=== PATIENT | male | born 1985 | race Caucasian/White ===

== ENCOUNTER 2017-05-08 16:18 | Inpatient (IN) | payer BC ==
[~2017-05-08] VITALS: Ht 188 cm; Wt 98.5 kg
[2017-05-08 19:00] VITALS: BP 131/74
[2017-05-08] MEDS ORDERED: HYDROmorphone 2 MG/ML VIAL IV PRN (19:30)
[2017-05-08] MEDS ORDERED: IV NORMAL SALINE 1000ML BAG 1,000 ML IV SCH (20:00)
[2017-05-08] MEDS ORDERED: ONDANSETRON PF 4 MG/2 ML VIAL. IV PRN (20:00)
[2017-05-08] MEDS: HYDROmorphone 2 MG/ML VIAL IV PRN ×2 (20:15→23:23)
[2017-05-08 20:20] VITALS: BP 131/74
[2017-05-08] MEDS: IV NORMAL SALINE 1000ML BAG 1,000 ML IV SCH (22:00)
[2017-05-08 23:00] VITALS: BP 146/73
[2017-05-09 03:00] VITALS: BP 130/74
[2017-05-09] MEDS: HYDROmorphone 2 MG/ML VIAL IV PRN ×4 (03:22→16:32)
[2017-05-09] MEDS: IV NORMAL SALINE 1000ML BAG 1,000 ML IV SCH ×3 (04:45→22:00)
[2017-05-09 05:13] LABS: BASO % 0 % (0-3); EOS % 1 % (0-3); HEMATOCRIT 52.1 % (39.0-53.0); HEMOGLOBIN 17.6 g/dL (13.0-17.5); LYMPH # 2.9 x10^3/uL (1.0-4.8); LYMPH % 29 % (24-48); MEAN CORPUSCULAR HEMOGLOBIN 32 pg (25-35); MEAN CORPUSCULAR HGB CONC 34 g/dL (31-37); MEAN CORPUSCULAR VOLUME 94 fL (79-100); MONO % 15 % (0-9); NEUT % 54 % (31-73); PLATELET COUNT 214 x10^3/uL (140-400); RED BLOOD COUNT 5.55 x10^6/uL (4.30-5.70); RED CELL DISTRIBUTION WIDTH 12.7 % (11.5-14.5); WHITE BLOOD COUNT 10.1 x10^3/uL (4.0-11.0)
[2017-05-09 05:47] LABS: ALBUMIN 3.5 g/dL (3.4-5.0); ALBUMIN/GLOBULIN RATIO 0.9 (1.0-1.7); C-REACTIVE PROTEIN 17.1 mg/L (0-3.3); CALCIUM 8.8 mg/dL (8.5-10.1); CREATININE 0.9 mg/dL (0.7-1.3); GFR 99.1; TOTAL BILIRUBIN 0.5 mg/dL (0.2-1.0); TOTAL PROTEIN 7.5 g/dL (6.4-8.2)
[2017-05-09 07:00] VITALS: BP 142/74
[2017-05-09] MEDS ORDERED: BARIUM SULFATE 60% 355 ML SUSP PO ONE ×2 (07:45→08:30)
--- NOTE | 2017-05-09 08:20 | PDOC2 ---
GI CONSULT Reason For Consult: Abdominal pain HPI: HPI: 31 y/o male with 2-week h/o vague upper abdominal discomfort; feels crampy. No change with eating. No nausea or vomiting. Prior to onset, no GI symptoms. Sonogram, CT A/P, HIDA with GBEF normal though abdominal cramps with Kinevac. Denies heartburn or dysphagia. Does have some pc bloating and early satiety. Has had generalized malaise with illness, but no clear viral prodrome. No PUD, GB, liver or pancreatic history. No tobacco and only occasional alcohol use. No real ASA or NSAID use. No D, C, overt bleeding or melena. Weight stable. Appetite off last week or so. No prior endoscopy. No pertinent GIFH. PMH: PMH: Negative for chronic illnesses. s/p ORIF right index finger fx. FH: Family History: No pertinent hx Social History: Smoke: No ALCOHOL: occassional Drugs: None ROS: GEN: Denies fevers, chills, sweats HEENT: Denies blurred vision, sore throat CV: Denies chest pain RESP: Denies shortness of air, cough GI: Per HPI : Denies hematuria, dysuria ENDO: Denies weight changes NEURO: Denies confusion, dizziness MSK: Denies weakness, joint pain/swelling SKIN: Denies jaundice, pruritus Vitals: Vitals: Vital Signs Date Time Temp Pulse Resp B/P (MAP) Pulse Ox O2 Delivery O2 Flow Rate FiO2 05/09/17 06:34 18 Room Air 05/09/17 03:00 97.7 66 130/74 (92) 96 97.7 Labs: Labs: Laboratory Tests Test 05/09/17 05:00 White Blood Count 10.1 x10^3/uL (4.0-11.0) Red Blood Count 5.55 x10^6/uL (4.30-5.70) Hemoglobin 17.6 g/dL (13.0-17.5) Hematocrit 52.1 % (39.0-53.0) Mean Corpuscular Volume 94 fL (79-100) Mean Corpuscular Hemoglobin 32 pg (25-35) Mean Corpuscular Hemoglobin Concent 34 g/dL (31-37) Red Cell Distribution Width 12.7 % (11.5-14.5) Platelet Count 214 x10^3/uL (140-400) Neutrophils (%) (Auto) 54 % (31-73) Lymphocytes (%) (Auto) 29 % (24-48) Monocytes (%) (Auto) 15 % (0-9) Eosinophils (%) (Auto) 1 % (0-3) Basophils (%) (Auto) 0 % (0-3) Neutrophils # (Auto) 5.5 x10^3uL (1.8-7.7) Lymphocytes # (Auto) 2.9 x10^3/uL (1.0-4.8) Monocytes # (Auto) 1.6 x10^3/uL (0.0-1.1) Eosinophils # (Auto) 0.1 x10^3/uL (0.0-0.7) Basophils # (Auto) 0.0 x10^3/uL (0.0-0.2) Erythrocyte Sedimentation Rate 4 (0-15) Sodium Level 139 mmol/L (136-145) Potassium Level 4.0 mmol/L (3.5-5.1) Chloride Level 103 mmol/L (98-107) Carbon Dioxide Level 26 mmol/L (21-32) Anion Gap 10 (6-14) Blood Urea Nitrogen 13 mg/dL (8-26) Creatinine 0.9 mg/dL (0.7-1.3) Estimated GFR (Cockcroft-Gault) 99.1 BUN/Creatinine Ratio 14 (6-20) Glucose Level 69 mg/dL (70-99) Calcium Level 8.8 mg/dL (8.5-10.1) Total Bilirubin 0.5 mg/dL (0.2-1.0) Aspartate Amino Transf (AST/SGOT) 25 U/L (15-37) Alanine Aminotransferase (ALT/SGPT) 62 U/L (16-63) Alkaline Phosphatase 55 U/L (46-116) C-Reactive Protein, Quantitative 17.1 mg/L (0-3.3) Total Protein 7.5 g/dL (6.4-8.2) Albumin 3.5 g/dL (3.4-5.0) Albumin/Globulin Ratio 0.9 (1.0-1.7) Lipase 98 U/L (73-393) Note elevated CRP Allergies: Coded Allergies: No Known Drug Allergies (Unverified , 10/15/13) Medications: Current Medications Medications (Trade) Dose Ordered Sig/Lyla Route PRN Reason Start Time Stop Time Status Last Admin Dose Admin Hydromorphone HCl (Dilaudid) 2 mg PRN Q3HRS PRN IV PAIN 05/08/17 19:30 05/09/17 06:34 Sodium Chloride 1,000 ml @ 125 mls/hr Q8HRS IV 05/08/17 22:00 05/09/17 04:45 Imaging: Imaging: As above at [facility]; have reviewed. PE: GEN: NAD, looks tired HEENT: Atraumatic, PERRLA LUNGS: CTAB HEART: RRR, no murmurs ABD: NABS, S/ND, no masses, tender bilateral flank musculature and right inferior rectus. No true abdominal tenderness. EXTREMITY: No edema SKIN: No rashes, no jaundice NEURO/PSYCH: A & O 3 A/P: A/P: IMP: Vague upper abdominal symptoms. Best I can give is perhaps a viral syndrome with some secondary atypical reflux symptoms. Elevated CRP is non- specific; nothing to strongly suggest IBD. GB w/o demonstrated abnormality; cramping with HIDA/GBEF non-specific. REC: SBFT Empiric PPI. OK to try diet. --other pending. Thank you for allowing me to assist in the care of this patient. RANULFO WATTERS MD May 09, 2017 08:20
--- NOTE | 2017-05-09 12:30 | RAD ---
EXAM: Small bowel follow-through. HISTORY: Abdominal pain. COMPARISON: CT, 05/07/2017. FINDINGS: A retail solar advisor image was obtained. This demonstrates a normal bowel gas pattern. Barium contrast material was administered orally and followed in its course through the stomach and small bowel with plain radiographs and fluoroscopy. 7 fluoroscopic images were obtained. Fluoroscopy time 1.2 minutes. The initial image demonstrates a 12 mm excrescence along the medial aspect of the proximal duodenum just distal to the pylorus. This most likely represents a duodenal diverticulum, but a deep ulcer could also produce this appearance. More distally, the small bowel appears normal without strictures or dilatation. The fold pattern appears normal without focal lesions. Transit time was normal at approximately 60 minutes. IMPRESSION: 1. A 12 mm excrescence along the medial aspect of the duodenum just distal to the pylorus may represent a small duodenal diverticulum, but an ulcer is another consideration given its appearance on CT. Endoscopy could further exclude peptic ulcer disease. 2. Unremarkable examination of the small bowel more distally.
--- NOTE | 2017-05-09 13:06 | PDOC2 ---
CONSULT Date of Consult Date of Consult DATE: 05/09/17 TIME: 13:02 Reason for Consult Reason for Consult: Epigastric abd pain Referring Physician Referring Physician: Esequiel Identification/Chief Complaint Chief Complaint epigastric pain Problems: Source Source: Patient History of Present Illness Reason for Visit: 31 yo M with few week history of epigastric pain. Multiple evaluations which have been unrevealing. Presented to ER and admitted last night. Reports feeling somewhat better today. Notes feels better when he is up moving around. Past Medical History Cardiovascular: No pertinent hx Past Surgical History Past Surgical History: No pertinent history Family History Family History: No Significant Social History No ALCOHOL: occassional Drugs: None Current Medications Current Medications Current Medications Hydromorphone HCl (Dilaudid) 2 mg PRN Q3HRS PRN IV PAIN Last administered on 06:34; Start 05/08/17 at 19:30; Stop 05/09/17 at 11:51; Status DC Hydromorphone HCl (Dilaudid) 1 mg PRN Q3HRS PRN IV PAIN; Start 05/08/17 at 19: 30; Stop 05/09/17 at 11:51; Status DC Ondansetron HCl (Zofran) 4 mg PRN Q4HRS PRN IV NAUSEA/VOMITING; Start at 20:00 Sodium Chloride 1,000 ml @ 125 mls/hr PRN Q8HRS IV ; Start 05/08/17 at 20:00 ; Stop 05/08/17 at 21:20; Status DC Sodium Chloride 1,000 ml @ 125 mls/hr Q8HRS IV Last administered on 04:45; Start 05/08/17 at 22:00 Barium Sulfate (Liquid E-Z Paque) 710 ml 1X ONCE PO ; Start 05/09/17 at 07:45 ; Stop 05/09/17 at 07:46; Status DC Pantoprazole Sodium (Protonix) 40 mg BIDAC PO ; Start 05/09/17 at 08:30 Barium Sulfate (Liquid E-Z Paque) 710 ml 1X ONCE PO Last administered on 05/09 09:17; Start 05/09/17 at 08:30; Stop 05/09/17 at 08:31; Status DC Hydromorphone HCl (Dilaudid) 2 mg PRN Q2HRS PRN IV PAIN SEVERE; Start at 12:00 Oxycodone HCl (OxyCONTIN) 10 mg Q12HR PO ; Start 05/09/17 at 21:00 Allergies Allergies: Coded Allergies: No Known Drug Allergies (Unverified , 10/15/13) ROS Gastrointestinal: Yes Abdominal Pain Physical Exam General: Alert, Oriented X3, Cooperative, mild distress HEENT: Atraumatic, EOMI Lungs: Normal air movement Abdomen: Soft, Other (mild epigastric abd pain, small reducible umb hernia) Extremities: No clubbing, No cyanosis Skin: No rashes, No breakdown Neuro: Normal speech, Sensation intact Psych/Mental Status: Mental status NL, Mood NL Vitals VITALS Vital Signs Date Time Temp Pulse Resp B/P (MAP) Pulse Ox O2 Delivery O2 Flow Rate FiO2 05/09/17 07:11 94 Room Air 05/09/17 07:00 98.2 76 18 142/74 (96) 98.2 Labs Labs Laboratory Tests Test 05/09/17 05:00 White Blood Count 10.1 x10^3/uL (4.0-11.0) Red Blood Count 5.55 x10^6/uL (4.30-5.70) Hemoglobin 17.6 g/dL (13.0-17.5) Hematocrit 52.1 % (39.0-53.0) Mean Corpuscular Volume 94 fL (79-100) Mean Corpuscular Hemoglobin 32 pg (25-35) Mean Corpuscular Hemoglobin Concent 34 g/dL (31-37) Red Cell Distribution Width 12.7 % (11.5-14.5) Platelet Count 214 x10^3/uL (140-400) Neutrophils (%) (Auto) 54 % (31-73) Lymphocytes (%) (Auto) 29 % (24-48) Monocytes (%) (Auto) 15 % (0-9) Eosinophils (%) (Auto) 1 % (0-3) Basophils (%) (Auto) 0 % (0-3) Neutrophils # (Auto) 5.5 x10^3uL (1.8-7.7) Lymphocytes # (Auto) 2.9 x10^3/uL (1.0-4.8) Monocytes # (Auto) 1.6 x10^3/uL (0.0-1.1) Eosinophils # (Auto) 0.1 x10^3/uL (0.0-0.7) Basophils # (Auto) 0.0 x10^3/uL (0.0-0.2) Erythrocyte Sedimentation Rate 4 (0-15) Sodium Level 139 mmol/L (136-145) Potassium Level 4.0 mmol/L (3.5-5.1) Chloride Level 103 mmol/L (98-107) Carbon Dioxide Level 26 mmol/L (21-32) Anion Gap 10 (6-14) Blood Urea Nitrogen 13 mg/dL (8-26) Creatinine 0.9 mg/dL (0.7-1.3) Estimated GFR (Cockcroft-Gault) 99.1 BUN/Creatinine Ratio 14 (6-20) Glucose Level 69 mg/dL (70-99) Calcium Level 8.8 mg/dL (8.5-10.1) Total Bilirubin 0.5 mg/dL (0.2-1.0) Aspartate Amino Transf (AST/SGOT) 25 U/L (15-37) Alanine Aminotransferase (ALT/SGPT) 62 U/L (16-63) Alkaline Phosphatase 55 U/L (46-116) C-Reactive Protein, Quantitative 17.1 mg/L (0-3.3) Total Protein 7.5 g/dL (6.4-8.2) Albumin 3.5 g/dL (3.4-5.0) Albumin/Globulin Ratio 0.9 (1.0-1.7) Lipase 98 U/L (73-393) Laboratory Tests Test 05/09/17 05:00 White Blood Count 10.1 x10^3/uL (4.0-11.0) Red Blood Count 5.55 x10^6/uL (4.30-5.70) Hemoglobin 17.6 g/dL (13.0-17.5) Hematocrit 52.1 % (39.0-53.0) Mean Corpuscular Volume 94 fL (79-100) Mean Corpuscular Hemoglobin 32 pg (25-35) Mean Corpuscular Hemoglobin Concent 34 g/dL (31-37) Red Cell Distribution Width 12.7 % (11.5-14.5) Platelet Count 214 x10^3/uL (140-400) Neutrophils (%) (Auto) 54 % (31-73) Lymphocytes (%) (Auto) 29 % (24-48) Monocytes (%) (Auto) 15 % (0-9) Eosinophils (%) (Auto) 1 % (0-3) Basophils (%) (Auto) 0 % (0-3) Neutrophils # (Auto) 5.5 x10^3uL (1.8-7.7) Lymphocytes # (Auto) 2.9 x10^3/uL (1.0-4.8) Monocytes # (Auto) 1.6 x10^3/uL (0.0-1.1) Eosinophils # (Auto) 0.1 x10^3/uL (0.0-0.7) Basophils # (Auto) 0.0 x10^3/uL (0.0-0.2) Erythrocyte Sedimentation Rate 4 (0-15) Sodium Level 139 mmol/L (136-145) Potassium Level 4.0 mmol/L (3.5-5.1) Chloride Level 103 mmol/L (98-107) Carbon Dioxide Level 26 mmol/L (21-32) Anion Gap 10 (6-14) Blood Urea Nitrogen 13 mg/dL (8-26) Creatinine 0.9 mg/dL (0.7-1.3) Estimated GFR (Cockcroft-Gault) 99.1 BUN/Creatinine Ratio 14 (6-20) Glucose Level 69 mg/dL (70-99) Calcium Level 8.8 mg/dL (8.5-10.1) Total Bilirubin 0.5 mg/dL (0.2-1.0) Aspartate Amino Transf (AST/SGOT) 25 U/L (15-37) Alanine Aminotransferase (ALT/SGPT) 62 U/L (16-63) Alkaline Phosphatase 55 U/L (46-116) C-Reactive Protein, Quantitative 17.1 mg/L (0-3.3) Total Protein 7.5 g/dL (6.4-8.2) Albumin 3.5 g/dL (3.4-5.0) Albumin/Globulin Ratio 0.9 (1.0-1.7) Lipase 98 U/L (73-393) Images Images UGI c/w diverticulum or ulcer Assessment/Plan Assessment/Plan Epigastric pain agree with w/u per GI will follow along for possible intervention d/w pt and pt's family, d/w Dr. Iraheta Thanks for consult! RAFAELA DRUMMOND MD May 09, 2017 13:06
[2017-05-09] MEDS: PANTOPRAZOLE 40 MG TABLET.DR. PO SCH ×2 (13:08→18:23)
[2017-05-09 15:00] VITALS: BP 161/75
[2017-05-09 19:00] VITALS: BP 141/83
[2017-05-09] MEDS: oxyCODONE ER 10 MG TAB.ER.12H PO SCH (21:03)
[2017-05-09 22:00] VITALS: BP 129/74
[2017-05-10 03:00] VITALS: BP 132/73
[2017-05-10 05:29] LABS: BASO % 0 % (0-3); EOS % 1 % (0-3); HEMATOCRIT 49.2 % (39.0-53.0); HEMOGLOBIN 16.7 g/dL (13.0-17.5); LYMPH # 4.8 x10^3/uL (1.0-4.8); LYMPH % 44 % (24-48); MEAN CORPUSCULAR HEMOGLOBIN 31 pg (25-35); MEAN CORPUSCULAR HGB CONC 34 g/dL (31-37); MEAN CORPUSCULAR VOLUME 92 fL (79-100); MONO % 13 % (0-9); NEUT % 42 % (31-73); PLATELET COUNT 226 x10^3/uL (140-400); RED BLOOD COUNT 5.33 x10^6/uL (4.30-5.70); RED CELL DISTRIBUTION WIDTH 12.5 % (11.5-14.5)
[2017-05-10 05:48] LABS: ALBUMIN 3.4 g/dL (3.4-5.0); ALBUMIN/GLOBULIN RATIO 0.9 (1.0-1.7); CREATININE 0.9 mg/dL (0.7-1.3); GFR 99.1; POTASSIUM 4.2 mmol/L (3.5-5.1); TOTAL BILIRUBIN 0.4 mg/dL (0.2-1.0); TOTAL PROTEIN 7.4 g/dL (6.4-8.2)
[2017-05-10] MEDS: IV NORMAL SALINE 1000ML BAG 1,000 ML IV SCH (06:00)
[2017-05-10 07:41] VITALS: BP 165/75
[2017-05-10] MEDS: oxyCODONE ER 10 MG TAB.ER.12H PO SCH (08:18)
[2017-05-10] MEDS: PANTOPRAZOLE 40 MG TABLET.DR. PO SCH (08:18)
[2017-05-10] MEDS ORDERED: HYDR-971 PO (09:34)
[2017-05-10] MEDS ORDERED: PANT40TA3 PO (09:34)
[2017-05-10] MEDS ORDERED: SUCR1TAB35 PO (09:34)
[2017-05-10] MEDS ORDERED: OXYC10TA57 PO (09:34)
--- NOTE | 2017-05-10 11:37 | DS ---
DATE OF DISCHARGE: 05/10/2017 HOSPITAL COURSE: The patient is a 31-year-old male patient who was seen originally at [facility] with a complaint of severe upper quadrant pain. He was extensively investigated and has had a CT scan of the abdomen and pelvis and HIDA scan with normal gallbladder ejection fraction excluding the acalculous cholecystitis as possible cause of his pain. He was transferred to [facility] and consulted the surgical team and the Gastroenterology team. He has had a small bowel followthrough, which basically showed a 12 mm excrescence along the medial aspect of the duodenum just distal to the pylorus, may represent a small duodenal diverticulum but an ulcer is another consideration given its appearance and CT endoscopy could further exclude peptic ulcer disease. He has otherwise unremarkable examination of the small bowel more distally. He was started on proton pump inhibitor as well as Carafate and pain medication. He was started on a clear liquid diet and advanced as tolerated. His pain is much better controlled now. As the Gastroenterology team is not doing any endoscopies on Sunday and his pain is much better controlled and is tolerating his diet, a decision was made to discharge him home to continue on Protonix and Carafate as well as OxyContin and hydrocodone and for him to call the GI office to arrange for outpatient endoscopy on Sunday or Sunday. PHYSICAL EXAMINATION: GENERAL: When I saw him today, he looked well and was clearly in no apparent respiratory distress. No pallor, jaundice, cyanosis or thyromegaly. No jugular venous distension. No limb edema. VITAL SIGNS: His heart rate was 83, blood pressure was 132/73, temperature was 96.3, respiratory rate was 16 and oxygen saturation was 95% on room air. HEAD, EYES, EARS, NOSE AND THROAT: Normocephalic and atraumatic. NECK: Supple. HEART: Showed normal first and second heart sounds with no gallop, rub or murmur. CHEST: Clear to auscultation. No crepitation or rhonchi. ABDOMEN: Distended, soft and nontender. NEUROLOGICAL: He was awake, alert, responding appropriately. Cranial nerves are intact. EXTREMITIES: He moves extremities without difficulty, ambulates without assistance or assistive devices. His intake was 1975, output was 750. LABORATORY DATA: His lab work as of this morning showed a white cell count of 11,000; hemoglobin 16.7; hematocrit 49; MCV 92 and platelet count of 226,000. His chemistry showed a serum sodium 139, potassium 4.2, chloride 102, bicarbonate 31, anion gap of 6, BUN 9, creatinine 0.9, estimated GFR was 99 mL per minute, his glucose was 97 and calcium was 9. Total bilirubin, AST, ALT, alkaline phosphatase were normal. His total protein was 7.4 and albumin 3.4. DISCHARGE MEDICATIONS: The patient was discharged home to continue on OxyContin 10 mg twice a day, hydrocodone 5/325 one tablet every 4 hours as needed, Protonix 40 mg twice a day and Carafate 1 gram before meals at bedtime. FINAL DISCHARGE DIAGNOSES: 1. Severe abdominal pain. 2. Questionable duodenal ulcer seen both on the CT scan and a small bowel followthrough, the radiologist recommended an upper GI endoscopy to confirm or refute that possibility. RENÉ SIMPSON MD DR: JOSHUA/wilfrid JOB#: [id number] / [id number]
== END 2017-05-10 11:45 | disposition home or self-care (01) | DRG 384 ==
LOC: 4 NORTH 19:11
PROVIDERS: ADMIT Internal Medicine; ATTEND Internal Medicine
DX: K26.9 Duodenal ulcer, unspecified as acute or chronic, without hemorrhage or perforation (principal); K81.9 Cholecystitis, unspecified; K57.10 Diverticulosis of small intestine without perforation or abscess without bleeding
CPT/HCPCS: 36415; 74250; 80053; 83690; 85025; 85651; 86140; J1170; J7030

== ENCOUNTER → 2017-05-15 | Day surgery (SDC) | payer BC ==
[~2017-05-15] MED LIST: HYDR-971 PO; OXYC10TA57 PO; PANT40TA3 PO; PROPOFOL 40 ML IV ONE; SUCR1TAB35 PO
--- NOTE | 2017-05-15 11:43 | PDOC1 ---
History and Physical Date of Admission Date of Admission DATE: 05/15/17 TIME: 11:37 Source Source: Chart review, Patient History of Present Illness History of Present Illness 31 y/o seen last week in-hospital for enigmatic, vague upper abdominal symptoms. On barium study, question of DU vs. diverticulum. Presents today for EGD. Sent home on PPI/sucralfate. Past Medical History Past Medical History [facility] Past Surgical History Past Surgical History ORIF right index finger fracture Past Surgical History: No pertinent history Family History Family History: No Significant Social History Smoke: No ALCOHOL: occassional Drugs: None Current Medications Current Medications Active Scripts Active Carafate (Sucralfate) 1 Gm Tablet 1 Tab PO QID Protonix (Pantoprazole Sodium) 40 Mg Tablet.dr 1 Tab PO BID 30 Days Allergies Allergies: Coded Allergies: No Known Drug Allergies (Unverified , 05/15/17) ROS Review of System Otherwise negative. Physical Exam General: Alert, Oriented X3, Cooperative, No acute distress Lungs: Clear to auscultation Heart: S1S2, RRR, no gallops, no murmurs Abdomen: Normal bowel sounds, Soft, No tenderness, No hepatosplenomegaly, No masses Rectal Exam: not examined Extremities: No cyanosis, No edema Skin: No significant lesion Neuro: Normal speech, Strength at 5/5 X4 ext, Normal tone, Sensation intact, Cranial nerves 3-12 NL, Reflexes 2+ Psych/Mental Status: Mental status NL, Mood NL Vitals Vitals Vital Signs Date Time Temp Pulse Resp B/P (MAP) Pulse Ox O2 Delivery O2 Flow Rate FiO2 05/15/17 11:06 98.1 74 20 97 98.1 VTE Prophylaxis Ordered VTE Prophylaxis Devices: No VTE Pharmacological Prophylaxi: No Assessment/Plan Assessment/Plan IMP: Abdominal pain, ulcer? PLAN: EGD RANULFO WATTERS MD May 15, 2017 11:43
--- NOTE | 2017-05-15 12:28 | PDOC4 ---
PROCEDURE Procedure EGD/biopsies Indication: abnormal ugi/abd pain/ulcer? Meds: per anesthesia Findings: E--irregular Z-line at 40cm c/w some reflux. G--Normal D--1 cm ulcer ant/superior wall bulb w/o bleeding, etc. Rest normal to second portion. --biopsies from antrum and fundus re; H.pylori. Jim. well. IMP: DU Mild reflux esophagitis REC: continue PPI, going to once daily in am. Can d/c sucralfate. F/u biopsies. Resume other meds, diet. F/u with me in 2 weeks. RANULFO WATTERS MD May 15, 2017 12:28
[2017-05-15 12:45] VITALS: BP 138/78
--- NOTE | 2017-05-16 16:33 | PATHOLOGY ---
PATHOLOGY REPORT * * * * * * * * FINAL DIAGNOSIS: A. Gastric biopsy, antrum: - Acute gastritis. B. Gastric biopsy, fundus: - Superficial chronic gastritis. COMMENT: Sections of the gastric antral biopsy reveal segments of gastric antral and antral/body transition mucosa showing congestion and acute inflammation. There are admixed small numbers of chronic inflammatory cells. An immunoperoxidase stain for Helicobacter is obtained. No Helicobacter organisms are identified. There is no evidence of malignancy. Sections of the gastric fundus biopsy reveal segments of gastric body mucosa showing superficial congestion and chronic inflammation. An immunoperoxidase stain for Helicobacter is obtained. No Helicobacter organisms are identified. There is no evidence of malignancy. (JPM:mgr; 05/16/2017) Special Stain Performed: Immunoperoxidase stain for Helicobacter (A1, B1) REPORT ELECTRONICALLY SIGNED BY: Jas Gautam M.D. DATE/TIME: 05/16/2017 16:32 * * * * * * * * GROSS PATHOLOGY: A. Received in formalin labeled "Cam Phelps, antrum, BX," are 2 segments of sorensen soft tissue measuring 1.2 x 0.2 x 0.2 cm in aggregate dimensions and ranging from 0.5 to 0.6 cm in maximum dimension. The specimen is submitted entirely in cassette A1. B. Received in formalin labeled "Cam Phelps, fundus, BX," are 2 segments of sorensen soft tissue measuring 0.9 x 0.2 x 0.3 cm in aggregate dimensions and ranging from 0.4 to 0.5 cm in maximum dimension. The specimen is submitted entirely in cassette B1. (TSD; 05/15/2017) INITIAL CPT CODE(S): A; 68073, 33642 B; 57594, 62272 Professional services performed by [facility] at [address] [address] Technical services performed by [facility] at [address] [place] [address], [address], [place] [address]. SPECIMEN(S) RECEIVED: A.Antrum biopsy B.Fundus biopsy CLINICAL HISTORY: Abdominal pain PATIENT: CAM PHELPS /AGE: 1206/08/1985 (Age: 31) PATIENT #: [id number] ALT CASE #: SPECIMEN COLLECTION DATE: 05/15/2017 SPECIMEN RECEIVED DATE: 05/15/2017 [facility] - [id number] [address] - PHONE: [phone] * * * END OF REPORT * * *
== END | disposition home or self-care (01) ==
LOC: SURG 10:38
PROVIDERS: ATTEND Internal Medicine Gastroenterology
DX: K21.0 Gastro-esophageal reflux disease with esophagitis (principal); K26.9 Duodenal ulcer, unspecified as acute or chronic, without hemorrhage or perforation; Z98.890 Other specified postprocedural states
CPT/HCPCS: 43239; 88305; 88342; J2704